=== PATIENT | female | born 1975 | race Caucasian/White ===

== ENCOUNTER 2022-10-09 11:15 | Emergency (ER) | payer MEDICAID ==
[~2022-10-09] VITALS: Ht 152.4 cm; Wt 68.0 kg
[2022-10-09 11:33] VITALS: TEMP 98.7; O2SAT 100
[2022-10-09 13:01] LABS: CLARITY URINE CLEAR (CLEAR); COLOR URINE YELLOW (YELLOW); GLUCOSE URINE NEGATIVE (NEGATIVE); KETONES URINE NEGATIVE (NEGATIVE); LEUKOCYTE ESTERASE URINE NEGATIVE (NEGATIVE); NITRITE URINE NEGATIVE (NEGATIVE); OCCULT BLOOD URINE NEGATIVE (NEGATIVE); PROTEIN URINE NEGATIVE (NEGATIVE); SPECIFIC GRAVITY URINE 1.007 (1.005-1.030); UROBILINOGEN URINE 0.2 E.U./dL (0.2-1.0)
[2022-10-09 13:12] LABS: BASOPHILS % 0.5 % (0.0-2.0); EOSINOPHILS % 3.1 % (0.0-5.0); HEMATOCRIT. 40.1 % (36.0-48.0); HEMOGLOBIN. 13.5 g/dL (12.0-16.0); LYMPHOCYTES % 31.3 % (20.0-50.0); MEAN CORPUSCULAR HEMOGLOBIN 29.2 pg (28.0-32.0); MEAN CORPUSCULAR HGB CONC 33.6 g/dL (31.0-37.0); MEAN PLATELET VOLUME 7.8 fl (7.4-10.4); NEUTROPHILS % 60.1 % (40.0-76.0); PLATELET 304 x1000/uL (130-400); RED BLOOD CELL COUNT 4.61 mill/uL (4.2-5.4); WHITE BLOOD COUNT 6.8 x1000/uL (4.5-11.0)
[2022-10-09 13:18] LABS: CHLORIDE 109 mEq/L (98-107); INDEX HEMOLYSI 1 (1-3); INDEX ICTERIC 1 (1-4); INDEX LIPEMIC 1 (1-3); POTASSIUM 3.7 mEq/L (3.5-5.1); SODIUM 137 mEq/L (136-145)
[2022-10-09 13:25] LABS: CALCIUM 8.6 mg/dL (8.5-10.1); CARBON DIOXIDE 25 mEq/L (21-32); CREATININE 0.6 mg/dL (0.6-1.3); GLUCOSE 109 mg/dL (70-105); UREA NITROGEN BLOOD 14 mg/dL (7-21)
[2022-10-09] MEDS ORDERED: IRBE1TAB43 MT (14:32)
[2022-10-09 14:55] VITALS: BP 133/80; PULSE 82; RESP 21
== END 2022-10-09 14:57 | disposition home or self-care (01) ==
LOC: ER 11:15
DX: N95.0 Postmenopausal bleeding (principal); M54.2 Cervicalgia; I10 Essential (primary) hypertension; Z98.890 Other specified postprocedural states
CPT/HCPCS: 36415; 76830; 76856; 80048; 81003; 85025; 99284

== ENCOUNTER 2022-10-26 08:17 | Emergency (ER) | payer MEDICAID ==
[~2022-10-26] VITALS: Ht 162.6 cm; Wt 75.0 kg
[~2022-10-26 08:17] MED LIST: IRBE1TAB43 MT
[2022-10-26 08:41] VITALS: O2SAT 100
[2022-10-26] MEDS ORDERED: MECLIZINE 25MG TABLET PO ONE (09:00)
[2022-10-26 09:12] LABS: BASOPHILS % 0.5 % (0.0-2.0); EOSINOPHILS % 2.5 % (0.0-5.0); HEMATOCRIT. 38.1 % (36.0-48.0); HEMOGLOBIN. 12.6 g/dL (12.0-16.0); LYMPHOCYTES % 30.3 % (20.0-50.0); MEAN CORPUSCULAR HEMOGLOBIN 28.9 pg (28.0-32.0); MEAN CORPUSCULAR HGB CONC 33.1 g/dL (31.0-37.0); MEAN CORPUSCULAR VOLUME 87.2 fL (81.0-99.0); MEAN PLATELET VOLUME 7.6 fl (7.4-10.4); MONOCYTES % 3.8 % (2.0-8.0); NEUTROPHILS % 62.9 % (40.0-76.0); PLATELET 286 x1000/uL (130-400); RED BLOOD CELL COUNT 4.37 mill/uL (4.2-5.4); RED CELL DISTRIBUTION WIDTH 14.2 % (11.6-14.6); WHITE BLOOD COUNT 7.1 x1000/uL (4.5-11.0)
[2022-10-26 09:23] LABS: HCG SCREEN NEGATIVE
[2022-10-26 09:43] LABS: CLARITY URINE CLEAR (CLEAR); COLOR URINE YELLOW (YELLOW); GLUCOSE URINE NEGATIVE (NEGATIVE); KETONES URINE NEGATIVE (NEGATIVE); LEUKOCYTE ESTERASE URINE NEGATIVE (NEGATIVE); NITRITE URINE NEGATIVE (NEGATIVE); OCCULT BLOOD URINE NEGATIVE (NEGATIVE); PH URINE 5.5 (4.5-8.0); PROTEIN URINE NEGATIVE (NEGATIVE); SPECIFIC GRAVITY URINE 1.021 (1.005-1.030)
[2022-10-26 10:30] LABS: ALBUMIN 3.6 g/dL (3.4-5.0); BILIRUBIN TOTAL 0.4 mg/dL (0.1-1.0); CALCIUM 8.2 mg/dL (8.5-10.1); CARBON DIOXIDE 26 mEq/L (21-32); CHLORIDE 114 mEq/L (98-107); CREATININE 0.7 mg/dL (0.6-1.3); GLUCOSE 102 mg/dL (70-105); POTASSIUM 3.3 mEq/L (3.5-5.1); PROTEIN TOTAL 7.9 g/dL (6.0-8.3); SODIUM 140 mEq/L (136-145); UREA NITROGEN BLOOD 15 mg/dL (7-21)
[2022-10-26 10:31] LABS: ALANINE AMINOTRANSFERASE 23 IU/L (13-61); ASPARTATE AMINOTRANSFERASE 18 IU/L (15-37); INDEX HEMOLYSI 1 (1-3); INDEX ICTERIC 1 (1-4); INDEX LIPEMIC 1 (1-3)
[2022-10-26 10:51] LABS: TROPONIN I HIGH SENSITIVITY 40 ng/L (<54)
[2022-10-26] MEDS ORDERED: MECL-159 MT (11:22)
[2022-10-26] MEDS ORDERED: ONDANSETRON 4MG ODT PO ONE (11:30)
[2022-10-26] MEDS ORDERED: ACETAMINOPHEN 325MG TABLET PO ONE (11:30)
[2022-10-26 11:48] VITALS: BP 132/70; PULSE 89; RESP 18; TEMP 98.2
== END 2022-10-26 11:49 | disposition home or self-care (01) ==
LOC: ER 08:17
DX: E87.6 Hypokalemia (principal); R42 Dizziness and giddiness; I10 Essential (primary) hypertension; Z98.890 Other specified postprocedural states
CPT/HCPCS: 99285; 71045; 80053; 81003; 81025; 84703; 83690; 85025; 84484; 36415; 93005; J8597; Q0162

== ENCOUNTER 2022-11-30 14:48 | Emergency (ER) | payer MEDICAID ==
[~2022-11-30] VITALS: Ht 157.5 cm; Wt 69.0 kg
[~2022-11-30 14:48] MED LIST changes: +MECL-299 MT
[2022-11-30 14:57] VITALS: O2SAT 100
[2022-11-30] MEDS ORDERED: IBUPROFEN 600MG TABLET PO STA (15:43)
[2022-11-30] MEDS ORDERED: NAPR-681 PO (17:51)
[2022-11-30] MEDS ORDERED: TRAM50TA3 MT (17:51)
[2022-11-30 19:34] VITALS: BP 121/68; PULSE 89; RESP 18; TEMP 98.3
== END 2022-11-30 19:37 | disposition home or self-care (01) ==
LOC: ER 14:48
DX: M25.512 Pain in left shoulder (principal)
CPT/HCPCS: 73030; 99283

== ENCOUNTER 2023-10-21 23:54 | Emergency (ER) | payer MEDICAID, OTHER ==
[~2023-10-21] VITALS: Ht 167.6 cm; Wt 75.0 kg
[~2023-10-21 23:54] MED LIST changes: +NAPR-681 PO; +TRAM50TA3 MT
[2023-10-22 00:15] VITALS: TEMP 98.3; O2SAT 100
[2023-10-22] MEDS: DIAZEPAM 5 MG/ML 2ML SYR IV ONE (00:49)
[2023-10-22] MEDS: SODIUM CHLORIDE 0.9% 1,000 ML IV ONE (00:49)
[2023-10-22] MEDS: ONDANSETRON HCL 4MG/2ML INJ IV ONE (00:50)
[2023-10-22 01:24] LABS: BASOPHILS % 0.4 % (0.0-2.0); EOSINOPHILS % 1.3 % (0.0-5.0); HEMATOCRIT. 38.1 % (36.0-48.0); HEMOGLOBIN. 12.9 g/dL (12.0-16.0); MEAN CORPUSCULAR HEMOGLOBIN 29.6 pg (28.0-32.0); MEAN CORPUSCULAR HGB CONC 33.9 g/dL (31.0-37.0); MEAN CORPUSCULAR VOLUME 87.3 fL (81.0-99.0); MEAN PLATELET VOLUME 8.1 fl (7.4-10.4); MONOCYTES % 5.2 % (2.0-8.0); NEUTROPHILS % 46.1 % (40.0-76.0); PLATELET 336 x1000/uL (130-400); RED BLOOD CELL COUNT 4.37 mill/uL (4.2-5.4); RED CELL DISTRIBUTION WIDTH 14.3 % (11.6-14.6); WHITE BLOOD COUNT 7.1 x1000/uL (4.5-11.0)
[2023-10-22 01:32] LABS: CHLORIDE 109 mEq/L (98-107); POTASSIUM 3.3 mEq/L (3.5-5.1); SODIUM 138 mEq/L (136-145)
[2023-10-22 01:33] LABS: CALCIUM 9.4 mg/dL (8.7-10.4); CARBON DIOXIDE 21 mEq/L (21-32)
[2023-10-22 01:34] LABS: INR 0.9
[2023-10-22 01:38] LABS: CREATININE 0.8 mg/dL (0.6-1.0); GLUCOSE 106 mg/dL (70-105); UREA NITROGEN BLOOD 11 mg/dL (9-23)
[2023-10-22 01:40] LABS: TROPONIN I HIGH SENSITIVITY 11 ng/L (3.0-34)
[2023-10-22] MEDS: MECLIZINE 25MG TABLET PO ONE (01:41)
[2023-10-22 01:43] LABS: ETHANOL BLOOD < 10 mg/dL (<10)
[2023-10-22 01:58] LABS: HCG SCREEN NEGATIVE
[2023-10-22 04:30] LABS: CLARITY URINE CLEAR (CLEAR); COLOR URINE YELLOW (YELLOW); GLUCOSE URINE NEGATIVE (NEGATIVE); KETONES URINE NEGATIVE (NEGATIVE); LEUKOCYTE ESTERASE URINE NEGATIVE (NEGATIVE); NITRITE URINE NEGATIVE (NEGATIVE); OCCULT BLOOD URINE NEGATIVE (NEGATIVE); PH URINE 7.5 (4.5-8.0); PROTEIN URINE NEGATIVE (NEGATIVE); SPECIFIC GRAVITY URINE 1.008 (1.005-1.030); UROBILINOGEN URINE 0.2 E.U./dL (0.2-1.0)
[2023-10-22 04:32] VITALS: BP 111/68; PULSE 82; RESP 19; O2SAT 99
[2023-10-22 04:37] LABS: *AMPHETAMINES SCREEN URINE NEGATIVE (NEGATIVE); *BARBITURATES SCREEN URINE NEGATIVE (NEGATIVE); *BENZODIAZEPINES SCREEN URINE NEGATIVE (NEGATIVE); *COCAINE SCREEN URINE NEGATIVE (NEGATIVE)
[2023-10-22 04:38] LABS: CANNABINOID URINE SCREEN NEGATIVE (NEGATIVE); ECSTASY MDMA SCREEN URINE NEGATIVE (NEGATIVE); METHADONE URINE SCREEN NEGATIVE (NEGATIVE); OPIATES URINE SCREEN NEGATIVE (NEGATIVE); PHENCYCLIDINE URINE SCREEN NEGATIVE (NEGATIVE)
[2023-10-22] MEDS ORDERED: MECL-299 MT (04:38)
[2023-10-22] MEDS: POTASSIUM CHLORIDE 20MEQ TABLET SR PO ONE (05:00)
== END 2023-10-22 05:01 | disposition home or self-care (01) ==
LOC: ER 10-22 00:06
DX: R42 Dizziness and giddiness (principal); R06.02 Shortness of breath; I10 Essential (primary) hypertension; Z79.899 Other long term (current) drug therapy
CPT/HCPCS: 80305; 80048; 81003; 80320; 84703; 83880; 83690; 85025; 85610; 84484; 36415; 71045; 70450; 93005; 96361; 96374; 96375; 99285; J8597; J3360; J2405; J7030; G0480